=== PATIENT | female | born 1985 | race Caucasian/White ===

== ENCOUNTER 2019-07-10 14:56 | Emergency (ER) | payer OTHER, SELFPAY ==
[2019-07-10] MEDS ORDERED: predniSONE 20 MG TAB ONE (16:24)
--- NOTE | 2019-07-10 16:24 | RAD ---
EXAM: Chest PA and lateral: HISTORY: Cough for 2 weeks COMPARISON: None FINDINGS: Heart size:Within normal limits. Lungs:Clear of acute process. No confluent pneumonia, overt edema, pleural effusion, or other acute process. IMPRESSION: No significant acute intrathoracic disease.
== END 2019-07-10 17:10 | disposition home or self-care (01) ==
LOC: ERS 14:56
DX: J20.9 Acute bronchitis, unspecified (principal); J45.909 Unspecified asthma, uncomplicated; Z79.51 Long term (current) use of inhaled steroids
CPT/HCPCS: 71046; 94640; J7512; J7620